=== PATIENT | male | born 1965 ===

== ENCOUNTER 2022-12-21 00:53 | Emergency (ER) | payer OTHER ==
--- NOTE | 2022-12-21 02:16 | ED ---
Psych HPI - General Chief Complaint: Psychiatric Symptoms Stated Complaint: Mental Health Time Seen by Provider: 12/21/22 01:31 Source: patient, RN notes reviewed, old records reviewed Mode of arrival: wheelchair Limitations: no limitations - History of Present Illness Initial Comments: This is a 57-year-old male to the emergency department for evaluation today. Presents today for evaluation regards to psychiatric illness under intoxication patient is not homicidal and is suicidal patient states he does have thoughts of hanging himself and killing himself MD Complaint: suicidal ideation, feels depressed -: unknown Associated Psychiatric Symptoms: depression, suicidal ideation History of same: Yes Quality: constant Improves With: none Worsens With: none Context: recent alcohol abuse Associated Symptoms: denies other symptoms Treatments Prior to Arrival: placed on mental health hold If Self Harm: admits thoughts of self harm - Related Data Home Medications Medication Instructions Recorded Confirmed Acetaminophen-Codeine 300-30mg 1 tab PO BID 12/22/22 12/22/22 [Tylenol w/codeine #3] Albuterol Nebulized [Ventolin 2.5 mg INHALATION RT-Q8H 12/22/22 12/22/22 Nebulized] Albuterol Sulfate [Ventolin HFA] 1 puff INHALATION RT-Q4H PRN 12/22/22 12/22/22 Bictegrav/Emtricit/Tenofov Ala 1 tab PO DAILY 12/22/22 12/22/22 [Biktarvy 50-200-25 mg Tablet] amLODIPine [Norvasc] 2.5 mg PO DAILY 12/22/22 12/22/22 Allergies Allergy/AdvReac Type Severity Reaction Status Date / Time No Known Allergies Allergy Verified 12/21/22 01:09 Review of Systems ROS Statement: Those systems with pertinent positive or pertinent negative responses have been documented in the HPI. ROS Other: All systems not noted in ROS Statement are negative. Past Medical History Past Medical History: Atrial Fibrillation History of Any Multi-Drug Resistant Organisms: None Reported Past Surgical History: Unable to Obtain Past Psychological History: Anxiety, Bipolar, Depression Smoking Status: Current every day smoker Past Alcohol Use History: Daily, Heavy Past Drug Use History: None Reported General Exam General appearance: alert, in no apparent distress Head exam: Present: atraumatic, normocephalic, normal inspection Eye exam: Present: normal appearance, PERRL, EOMI. Absent: scleral icterus, conjunctival injection, periorbital swelling ENT exam: Present: normal exam, mucous membranes moist Neck exam: Present: normal inspection. Absent: tenderness, meningismus, lymphadenopathy Respiratory exam: Present: normal lung sounds bilaterally. Absent: respiratory distress, wheezes, rales, rhonchi, stridor Cardiovascular Exam: Present: regular rate, normal rhythm, normal heart sounds. Absent: systolic murmur, diastolic murmur, rubs, gallop, clicks GI/Abdominal exam: Present: soft, normal bowel sounds. Absent: distended, tenderness, guarding, rebound, rigid Extremities exam: Present: normal inspection, full ROM, normal capillary refill. Absent: tenderness, pedal edema, joint swelling, calf tenderness Back exam: Present: normal inspection Neurological exam: Present: alert, oriented X3, CN II-XII intact Psychiatric exam: Present: normal affect, normal mood Skin exam: Present: warm, dry, intact, normal color. Absent: rash Course Vital Signs 12/21/22 12/21/22 12/22/22 01:05 18:32 06:00 Temperature 98.7 F 97.5 F L 97.6 F Pulse Rate 95 58 L 54 L Respiratory 18 18 18 Rate Blood Pressure 128/80 133/80 130/77 O2 Sat by Pulse 97 98 96 Oximetry 12/22/22 20:33 Temperature 98.1 F Pulse Rate 54 L Respiratory 16 Rate Blood Pressure 128/76 O2 Sat by Pulse 96 Oximetry - Reevaluation(s) Reevaluation #1: 12/21/22 04:13 Medical record is reviewed Medical Decision Making - Medical Decision Making 57 male transferred for inpatient psychiatric evaluation and treatment - Lab Data Result diagrams: 12/21/22 11:15 12/21/22 11:15 Lab Results 12/21/22 12/21/22 12/21/22 Range/Units 11:15 11:15 11:20 WBC 4.5 (3.8-10.6) k/uL RBC 3.58 L (4.30-5.90) m/uL Hgb 12.4 L (13.0-17.5) gm/dL Hct 35.3 L (39.0-53.0) % MCV 98.6 (80.0-100.0) fL MCH 34.7 (25.0-35.0) pg MCHC 35.2 (31.0-37.0) g/dL RDW 12.2 (11.5-15.5) % Plt Count 225 (150-450) k/uL MPV 7.4 Sodium 138 (137-145) mmol/L Potassium 4.3 (3.5-5.1) mmol/L Chloride 108 H (98-107) mmol/L Carbon Dioxide 22 (22-30) mmol/L Anion Gap 8 mmol/L BUN 16 (9-20) mg/dL Creatinine 0.74 (0.66-1.25) mg/dL Est GFR (CKD-EPI)AfAm >90 (>60 ml/min/1.73 sqM) Est GFR (CKD-EPI)NonAf >90 (>60 ml/min/1.73 sqM) Glucose 92 (74-99) mg/dL Calcium 8.9 (8.4-10.2) mg/dL Total Bilirubin 0.7 (0.2-1.3) mg/dL AST 38 (17-59) U/L ALT 18 (4-49) U/L Alkaline Phosphatase 71 (38-126) U/L Total Protein 7.1 (6.3-8.2) g/dL Albumin 4.2 (3.5-5.0) g/dL Urine Color Yellow Urine Appearance Clear (Clear) Urine pH 5.5 (5.0-8.0) Ur Specific [place] >1.030 (1.001-1.035) Urine Protein Trace (Negative) Urine Glucose (UA) Negative (Negative) Urine Ketones 1+ (Negative) Urine Blood Negative (Negative) Urine Nitrite Negative (Negative) Urine Bilirubin Negative (Negative) Urine Urobilinogen <2.0 (<2.0) mg/dL Ur Leukocyte Esterase Negative (Negative) Urine Opiates Screen Not Detected (NotDetected) Ur Oxycodone Screen Not Detected (NotDetected) Urine Methadone Screen Not Detected (NotDetected) Ur Propoxyphene Screen Not Detected (NotDetected) Ur Barbiturates Screen Not Detected (NotDetected) U Tricyclic Antidepress Not Detected (NotDetected) Ur Phencyclidine Scrn Not Detected (NotDetected) Ur Amphetamines Screen Not Detected (NotDetected) U Methamphetamines Scrn Not Detected (NotDetected) U Benzodiazepines Scrn Not Detected (NotDetected) Urine Cocaine Screen Not Detected (NotDetected) U Marijuana (THC) Screen Not Detected (NotDetected) Coronavirus (PCR) (Not Detectd) 12/21/22 Range/Units 16:20 WBC (3.8-10.6) k/uL RBC (4.30-5.90) m/uL Hgb (13.0-17.5) gm/dL Hct (39.0-53.0) % MCV (80.0-100.0) fL MCH (25.0-35.0) pg MCHC (31.0-37.0) g/dL RDW (11.5-15.5) % Plt Count (150-450) k/uL MPV Sodium (137-145) mmol/L Potassium (3.5-5.1) mmol/L Chloride (98-107) mmol/L Carbon Dioxide (22-30) mmol/L Anion Gap mmol/L BUN (9-20) mg/dL Creatinine (0.66-1.25) mg/dL Est GFR (CKD-EPI)AfAm (>60 ml/min/1.73 sqM) Est GFR (CKD-EPI)NonAf (>60 ml/min/1.73 sqM) Glucose (74-99) mg/dL Calcium (8.4-10.2) mg/dL Total Bilirubin (0.2-1.3) mg/dL AST (17-59) U/L ALT (4-49) U/L Alkaline Phosphatase (38-126) U/L Total Protein (6.3-8.2) g/dL Albumin (3.5-5.0) g/dL Urine Color Urine Appearance (Clear) Urine pH (5.0-8.0) Ur Specific [place] (1.001-1.035) Urine Protein (Negative) Urine Glucose (UA) (Negative) Urine Ketones (Negative) Urine Blood (Negative) Urine Nitrite (Negative) Urine Bilirubin (Negative) Urine Urobilinogen (<2.0) mg/dL Ur Leukocyte Esterase (Negative) Urine Opiates Screen (NotDetected) Ur Oxycodone Screen (NotDetected) Urine Methadone Screen (NotDetected) Ur Propoxyphene Screen (NotDetected) Ur Barbiturates Screen (NotDetected) U Tricyclic Antidepress (NotDetected) Ur Phencyclidine Scrn (NotDetected) Ur Amphetamines Screen (NotDetected) U Methamphetamines Scrn (NotDetected) U Benzodiazepines Scrn (NotDetected) Urine Cocaine Screen (NotDetected) U Marijuana (THC) Screen (NotDetected) Coronavirus (PCR) Not Detected (Not Detectd) Disposition Clinical Impression: Acute psychosis, Depression, Suicidal ideation Disposition: TRANSFER TO PSYCH HOSP/UNIT Condition: Fair Is patient prescribed a controlled substance at d/c from ED?: No Referrals: None,Stated [Primary Care Provider] - 1-2 days
[2022-12-21 11:32] LABS: HCT 35.3 % (39.0-53.0); HGB 12.4 gm/dL (13.0-17.5); MCH 34.7 pg (25.0-35.0); MCHC 35.2 g/dL (31.0-37.0); MCV 98.6 fL (80.0-100.0); Mean Platelet Volume 7.4; Platelet Count 225 k/uL (150-450); RBC 3.58 m/uL (4.30-5.90); RDW 12.2 % (11.5-15.5); WBC 4.5 k/uL (3.8-10.6)
[2022-12-21 12:06] LABS: ALT 18 U/L (4-49); AST 38 U/L (17-59); African American GFR (CKD) >90 (>60 ml/min/1.73 sqM); Albumin 4.2 g/dL (3.5-5.0); Alkaline Phosphatase 71 U/L (38-126); Anion Gap 8 mmol/L; Blood Urea Nitrogen 16 mg/dL (9-20); Calcium 8.9 mg/dL (8.4-10.2); Carbon Dioxide 22 mmol/L (22-30); Chloride 108 mmol/L (98-107); Glucose 92 mg/dL (74-99); Non-African American GFR(CKD) >90 (>60 ml/min/1.73 sqM); Potassium 4.3 mmol/L (3.5-5.1); Sodium 138 mmol/L (137-145); Total Bilirubin 0.7 mg/dL (0.2-1.3); Total Protein 7.1 g/dL (6.3-8.2)
[2022-12-21 12:19] LABS: Appearance,Urine Clear (Clear); Color,Urine Yellow; PH, Urine 5.5 (5.0-8.0); Protein,Urine Trace (Negative); Specific Gravity,Urine >1.030 (1.001-1.035)
[2022-12-21 12:20] LABS: Bilirubin,Urine Negative (Negative); Blood,Urine Negative (Negative); Glucose,Urine (UA) Negative (Negative); Ketones,Urine 1+ (Negative); Leukocyte Esterase,Urine Negative (Negative); Nitrite,Urine Negative (Negative); Urobilinogen,Urine <2.0 mg/dL (<2.0)
[2022-12-21 12:31] LABS: Amphetamine Screen,Urine Not Detected (NotDetected); Barbiturate Screen,Urine Not Detected (NotDetected); Benzodiazepines Screen,Urine Not Detected (NotDetected); Cocaine Screen,Urine Not Detected (NotDetected); Methadone Screen, Urine Not Detected (NotDetected); Opiate Screen,Urine Not Detected (NotDetected); Oxycodone Screen, Urine Not Detected (NotDetected); Phencyclidine Screen,Urine Not Detected (NotDetected); Tricyclic Antidepressant,Urine Not Detected (NotDetected); Urn Cannabinoid Scrn Not Detected (NotDetected)
[2022-12-22 06:51] VITALS: PULSE 54
[2022-12-22 20:36] VITALS: BP 128/76; RESP 16; TEMP 98.1
== END 2022-12-23 06:06 ==
LOC: EDSEX → EC 00:53
DX: R45.851 Suicidal ideations (principal); F29 Unspecified psychosis not due to a substance or known physiological condition; F32.A Depression, unspecified; I48.91 Unspecified atrial fibrillation; F41.9 Anxiety disorder, unspecified; F17.200 Nicotine dependence, unspecified, uncomplicated; Z79.899 Other long term (current) drug therapy; Z20.822 Contact with and (suspected) exposure to COVID-19
CPT/HCPCS: 36415; 80053; 80306; 81003; 82075; 85027; 87635; 99285

== ENCOUNTER 2023-01-28 10:03 | Emergency (ER) | payer OTHER ==
--- NOTE | 2023-01-28 10:10 | ED ---
General Adult HPI - General Source: patient, police, EMS, RN notes reviewed Mode of arrival: EMS Limitations: no limitations <Vernon Pizano - Last Filed: 01/28/23 10:08> - History of Present Illness -: unknown Consistency: constant Improves with: none Worsens with: none Associated Symptoms: denies other symptoms <Darvin Wilson - Last Filed: 01/29/23 04:23> - General Stated complaint: Mental Health Time Seen by Provider: 01/28/23 10:03 - History of Present Illness Initial comments: This a 57-year-old male presents emergency Department with chief complaint of alcohol intoxication, alcohol abuse and suicide ideation. Patient states that he has a planting all his medications. He states he has psychiatric medications. He does drink at least 1/5 of alcohol daily. Patient denies any abdominal pain he states that they are following day she had a laceration to his face, head injury was not evaluated for this. Patient does complain of headache. Denies any current drug abuse or homicidal patient. (Vernon Pizano) 57 male presents with acute alcohol intoxication and suicidal ideation (Darvin Wilson) - Related Data Home Medications Medication Instructions Recorded Confirmed Acetaminophen-Codeine 300-30mg 1 tab PO BID PRN 12/22/22 01/28/23 [Tylenol w/codeine #3] Albuterol Nebulized [Ventolin 2.5 mg INHALATION RT-Q8H 12/22/22 01/28/23 Nebulized] Albuterol Sulfate [Ventolin HFA] 1 puff INHALATION RT-Q4H PRN 12/22/22 01/28/23 Bictegrav/Emtricit/Tenofov Ala 1 tab PO DAILY 12/22/22 01/28/23 [Biktarvy 50-200-25 mg Tablet] amLODIPine [Norvasc] 2.5 mg PO DAILY 12/22/22 01/28/23 Venlafaxine HCl [Effexor XR] 75 mg PO DAILY 01/28/23 01/28/23 Allergies Allergy/AdvReac Type Severity Reaction Status Date / Time No Known Allergies Allergy Verified 01/28/23 10:42 Review of Systems ROS Other: All systems not noted in ROS Statement are negative. <Vernon Pizano - Last Filed: 01/28/23 10:08> ROS Other: All systems not noted in ROS Statement are negative. <Darvin Wilson - Last Filed: 01/29/23 04:23> ROS Statement: Those systems with pertinent positive or pertinent negative responses have been documented in the HPI. Past Medical History Past Medical History: Atrial Fibrillation History of Any Multi-Drug Resistant Organisms: None Reported Past Surgical History: Unable to Obtain Past Psychological History: Anxiety, Bipolar, Depression Smoking Status: Current every day smoker Past Alcohol Use History: Daily, Heavy Past Drug Use History: None Reported <Vernon Pizano - Last Filed: 01/28/23 10:08> General Exam Limitations: no limitations General appearance: alert, in no apparent distress Head exam: Present: atraumatic, normocephalic, normal inspection Eye exam: Present: normal appearance, PERRL, EOMI, periorbital tenderness (Mild right periorbital with healing laceration noted). Absent: scleral icterus, conjunctival injection, periorbital swelling ENT exam: Present: normal exam, normal oropharynx, mucous membranes moist Neck exam: Present: normal inspection, full ROM. Absent: tenderness, meningismus, lymphadenopathy Respiratory exam: Present: normal lung sounds bilaterally. Absent: respiratory distress, wheezes, rales, rhonchi, stridor Cardiovascular Exam: Present: regular rate, normal rhythm, normal heart sounds. Absent: systolic murmur, diastolic murmur, rubs, gallop, clicks GI/Abdominal exam: Present: soft, normal bowel sounds. Absent: distended, tenderness, guarding, rebound, rigid Neurological exam: Present: alert, oriented X3, CN II-XII intact, reflexes normal. Absent: motor sensory deficit Psychiatric exam: Present: flat affect Skin exam: Present: warm, dry, intact, normal color. Absent: rash <Vernon Pizano - Last Filed: 01/28/23 10:08> General appearance: alert, in no apparent distress, anxious Head exam: Present: atraumatic, normocephalic, normal inspection Eye exam: Present: normal appearance, PERRL, EOMI. Absent: scleral icterus, conjunctival injection, periorbital swelling ENT exam: Present: normal exam, mucous membranes moist Neck exam: Present: normal inspection. Absent: tenderness, meningismus, lymphadenopathy Respiratory exam: Present: normal lung sounds bilaterally. Absent: respiratory distress, wheezes, rales, rhonchi, stridor Cardiovascular Exam: Present: regular rate, normal rhythm, normal heart sounds. Absent: systolic murmur, diastolic murmur, rubs, gallop, clicks GI/Abdominal exam: Present: soft, normal bowel sounds. Absent: distended, tenderness, guarding, rebound, rigid Extremities exam: Present: normal inspection, full ROM, normal capillary refill. Absent: tenderness, pedal edema, joint swelling, calf tenderness Back exam: Present: normal inspection Neurological exam: Present: alert, oriented X3, CN II-XII intact Psychiatric exam: Present: normal affect, normal mood Skin exam: Present: warm, dry, intact, normal color. Absent: rash <Darvin Wilson - Last Filed: 01/29/23 04:23> Course <Darvin Wilson - Last Filed: 01/29/23 04:23> Vital Signs 01/28/23 01/28/23 10:08 16:00 Temperature 98.2 F 98.6 F Pulse Rate 74 84 Respiratory 18 16 Rate Blood Pressure 126/90 124/88 O2 Sat by Pulse 98 98 Oximetry - Reevaluation(s) Reevaluation #1: 01/29/23 Medical record is reviewed (Darvin Wilson) Reevaluation #2: 01/29/23 Medical clear for psychiatric evaluation (Darvin Wilson) Medical Decision Making - Lab Data Result diagrams: 01/28/23 10:26 01/28/23 10:26 <Darvin Wilson - Last Filed: 01/29/23 04:23> - Medical Decision Making 57 male seen in however psychiatry here in the ER will transferred for inpatient psychiatric evaluation and treatment (Darvin Wilson) - Lab Data Lab Results 01/28/23 01/28/23 01/28/23 Range/Units 10:26 10:26 10:26 WBC 4.0 (3.8-10.6) k/uL RBC 3.95 L (4.30-5.90) m/uL Hgb 13.1 (13.0-17.5) gm/dL Hct 38.6 L (39.0-53.0) % MCV 97.8 (80.0-100.0) fL MCH 33.3 (25.0-35.0) pg MCHC 34.1 (31.0-37.0) g/dL RDW 12.8 (11.5-15.5) % Plt Count 261 (150-450) k/uL MPV 7.3 Neutrophils % 53 % Lymphocytes % 36 % Monocytes % 5 % Eosinophils % 3 % Basophils % 0 % Neutrophils # 2.1 (1.3-7.7) k/uL Lymphocytes # 1.4 (1.0-4.8) k/uL Monocytes # 0.2 (0-1.0) k/uL Eosinophils # 0.1 (0-0.7) k/uL Basophils # 0.0 (0-0.2) k/uL Sodium 138 (137-145) mmol/L Potassium 3.9 (3.5-5.1) mmol/L Chloride 106 (98-107) mmol/L Carbon Dioxide 21 L (22-30) mmol/L Anion Gap 11 mmol/L BUN 12 (9-20) mg/dL Creatinine 0.64 L (0.66-1.25) mg/dL Est GFR (CKD-EPI)AfAm >90 (>60 ml/min/1.73 sqM) Est GFR (CKD-EPI)NonAf >90 (>60 ml/min/1.73 sqM) Glucose 70 L (74-99) mg/dL Calcium 8.5 (8.4-10.2) mg/dL Magnesium 2.0 (1.6-2.3) mg/dL Total Bilirubin 0.6 (0.2-1.3) mg/dL AST 49 (17-59) U/L ALT 25 (4-49) U/L Alkaline Phosphatase 80 (38-126) U/L Total Protein 7.0 (6.3-8.2) g/dL Albumin 4.1 (3.5-5.0) g/dL Lipase 122 (23-300) U/L Urine Opiates Screen Not Detected (NotDetected) Ur Oxycodone Screen Not Detected (NotDetected) Urine Methadone Screen Not Detected (NotDetected) Ur Propoxyphene Screen Not Detected (NotDetected) Ur Barbiturates Screen Not Detected (NotDetected) U Tricyclic Antidepress Not Detected (NotDetected) Ur Phencyclidine Scrn Not Detected (NotDetected) Ur Amphetamines Screen Not Detected (NotDetected) U Methamphetamines Scrn Not Detected (NotDetected) U Benzodiazepines Scrn Not Detected (NotDetected) Urine Cocaine Screen Detected H (NotDetected) U Marijuana (THC) Screen Detected H (NotDetected) Influenza Type A (PCR) (Not Detectd) Influenza Type B (PCR) (Not Detectd) RSV (PCR) (Not Detectd) SARS-CoV-2 (PCR) (Not Detectd) 01/28/23 Range/Units 19:20 WBC (3.8-10.6) k/uL RBC (4.30-5.90) m/uL Hgb (13.0-17.5) gm/dL Hct (39.0-53.0) % MCV (80.0-100.0) fL MCH (25.0-35.0) pg MCHC (31.0-37.0) g/dL RDW (11.5-15.5) % Plt Count (150-450) k/uL MPV Neutrophils % % Lymphocytes % % Monocytes % % Eosinophils % % Basophils % % Neutrophils # (1.3-7.7) k/uL Lymphocytes # (1.0-4.8) k/uL Monocytes # (0-1.0) k/uL Eosinophils # (0-0.7) k/uL Basophils # (0-0.2) k/uL Sodium (137-145) mmol/L Potassium (3.5-5.1) mmol/L Chloride (98-107) mmol/L Carbon Dioxide (22-30) mmol/L Anion Gap mmol/L BUN (9-20) mg/dL Creatinine (0.66-1.25) mg/dL Est GFR (CKD-EPI)AfAm (>60 ml/min/1.73 sqM) Est GFR (CKD-EPI)NonAf (>60 ml/min/1.73 sqM) Glucose (74-99) mg/dL Calcium (8.4-10.2) mg/dL Magnesium (1.6-2.3) mg/dL Total Bilirubin (0.2-1.3) mg/dL AST (17-59) U/L ALT (4-49) U/L Alkaline Phosphatase (38-126) U/L Total Protein (6.3-8.2) g/dL Albumin (3.5-5.0) g/dL Lipase (23-300) U/L Urine Opiates Screen (NotDetected) Ur Oxycodone Screen (NotDetected) Urine Methadone Screen (NotDetected) Ur Propoxyphene Screen (NotDetected) Ur Barbiturates Screen (NotDetected) U Tricyclic Antidepress (NotDetected) Ur Phencyclidine Scrn (NotDetected) Ur Amphetamines Screen (NotDetected) U Methamphetamines Scrn (NotDetected) U Benzodiazepines Scrn (NotDetected) Urine Cocaine Screen (NotDetected) U Marijuana (THC) Screen (NotDetected) Influenza Type A (PCR) Not Detected (Not Detectd) Influenza Type B (PCR) Not Detected (Not Detectd) RSV (PCR) Not Detected (Not Detectd) SARS-CoV-2 (PCR) Not Detected (Not Detectd) Disposition <Vernon Pizano M - Last Filed: 01/28/23 10:08> Is patient prescribed a controlled substance at d/c from ED?: No <Darvin Wilson - Last Filed: 01/29/23 04:23> Clinical Impression: Acute psychosis, Depression, Suicidal ideation, Alcohol intoxication Disposition: TRANSFER TO PSYCH HOSP/UNIT Condition: Fair Referrals: None,Stated [Primary Care Provider] - 1-2 days
[2023-01-28 10:47] LABS: Amphetamine Screen,Urine Not Detected (NotDetected); Barbiturate Screen,Urine Not Detected (NotDetected); Benzodiazepines Screen,Urine Not Detected (NotDetected); Cocaine Screen,Urine Detected (NotDetected); Methadone Screen, Urine Not Detected (NotDetected); Opiate Screen,Urine Not Detected (NotDetected); Oxycodone Screen, Urine Not Detected (NotDetected); Phencyclidine Screen,Urine Not Detected (NotDetected); Tricyclic Antidepressant,Urine Not Detected (NotDetected); Urn Cannabinoid Scrn Detected (NotDetected)
[2023-01-28 10:49] LABS: Basophils % (A) 0 %; Eosinophils # (A) 0.1 k/uL (0-0.7); Eosinophils % (A) 3 %; HCT 38.6 % (39.0-53.0); HGB 13.1 gm/dL (13.0-17.5); Lymphocytes # (A) 1.4 k/uL (1.0-4.8); Lymphocytes % (A) 36 %; MCH 33.3 pg (25.0-35.0); MCHC 34.1 g/dL (31.0-37.0); MCV 97.8 fL (80.0-100.0); Mean Platelet Volume 7.3; Monocytes # (A) 0.2 k/uL (0-1.0); Monocytes % (A) 5 %; Neutrophils # (A) 2.1 k/uL (1.3-7.7); Neutrophils % (A) 53 %; Platelet Count 261 k/uL (150-450); RBC 3.95 m/uL (4.30-5.90); RDW 12.8 % (11.5-15.5)
[2023-01-28 10:50] LABS: ALT 25 U/L (4-49); AST 49 U/L (17-59); African American GFR (CKD) >90 (>60 ml/min/1.73 sqM); Albumin 4.1 g/dL (3.5-5.0); Alkaline Phosphatase 80 U/L (38-126); Anion Gap 11 mmol/L; Blood Urea Nitrogen 12 mg/dL (9-20); Calcium 8.5 mg/dL (8.4-10.2); Carbon Dioxide 21 mmol/L (22-30); Chloride 106 mmol/L (98-107); Glucose 70 mg/dL (74-99); Lipase 122 U/L (23-300); Non-African American GFR(CKD) >90 (>60 ml/min/1.73 sqM); Potassium 3.9 mmol/L (3.5-5.1); Sodium 138 mmol/L (137-145); Total Bilirubin 0.6 mg/dL (0.2-1.3)
--- NOTE | 2023-01-28 10:54 | CT ---
EXAMINATION TYPE: CT brain cspine wo con CT DLP: 1426.4 mGycm, Automated exposure control for dose reduction was used. DATE OF EXAM: 01/28/2023 10:45 AM COMPARISON: None.. CLINICAL INDICATION:Male, 57 years old with history of fall; Recent fall TECHNIQUE: Brain: Multiple axial CT images of the brain were obtained without IV contrast. Cspine: Axial CT images from the skull base to the inferior aspect of T2 we obtained without intraven ous contrast. Coronal and sagittal reformatted images were also reviewed. FINDINGS: Brain: Extra-axial spaces: No abnormal extra-axial fluid collections. Ventricular system: Within normal limits Cerebral parenchyma: No acute intraparenchymal hemorrhage or mass effect. The montes-white junction is well differentiated. Cerebellum: Unremarkable. Mass effect: No evidence of midline shift. Intracranial vasculature: Atherosclerotic calcifications of the intracranial vessels. Soft tissues: Mild right periorbital soft tissue swelling. Calvarium/osseous structures: No depressed skull fracture. Remote right medial orbital wall fracture. Paranasal sinuses and mastoid air cells: Mild scattered mucosal thickening of the ethmoid sinuses. Visualized orbits: Orbital contents are intact. Cervical spine: Fracture: None. Osseous structures: Multilevel degenerative disc disease changes with endplate spurring and anterior osteophytosis. Postsurgical changes from anterior cervical fusion hardware involving C3-C5. Hardware appears intact. Vertebral alignment: Within normal limits. Spinal canal/Neural Foramina: Broad-based disc bulge at C2-C3 with mild effacement of the anterior th ecal sac. No evidence for significant neural foraminal stenosis. Neck soft tissues: Prevertebral soft tissues are within normal limits. Other: The airway is patent. Biapical paraseptal emphysematous changes. IMPRESSION: 1. No acute intracranial process. 2. Right periorbital soft tissue swelling. 3. Remote right medial orbital wall fracture. 4. No evidence of cervical spine fracture. 5. Postsurgical changes from anterior cervical fusion C3-C5 with mild multilevel degenerative disc d isease.
[2023-01-28 18:18] VITALS: TEMP 98.6
[2023-01-28] MEDS ORDERED: Acetaminophen-Codeine 300-30mg TAB PO PRN (22:09)
[2023-01-28] MEDS ORDERED: ALBUTEROL NEBULIZED 2.5 MG/3 ML INHALATION PRN (22:09)
[2023-01-29 07:54] VITALS: PULSE 86
[2023-01-29 08:18] VITALS: BP 148/90; RESP 16
[2023-01-29] MEDS ORDERED: NON FORMULARY DRUG (Bictegrav/Emtricit/Tenofov Ala [Biktarvy 50-200-25 Mg Tablet] 1 EACH T PO SCH (09:00)
[2023-01-29] MEDS ORDERED: amLODIPine 2.5 MG TAB PO SCH (09:00)
[2023-01-29] MEDS ORDERED: VENLAFAXINE HCL ER 75 MG CAP PO SCH (09:00)
== END 2023-01-29 08:29 ==
LOC: EC 10:03
DX: F23 Brief psychotic disorder (principal); F32.A Depression, unspecified; R45.851 Suicidal ideations; F10.129 Alcohol abuse with intoxication, unspecified; I48.91 Unspecified atrial fibrillation; F17.200 Nicotine dependence, unspecified, uncomplicated; Z86.59 Personal history of other mental and behavioral disorders; Z20.822 Contact with and (suspected) exposure to COVID-19
CPT/HCPCS: 36415; 70450; 72125; 80053; 80306; 82075; 83690; 83735; 85025; 87636; 99285